=== PATIENT | female | born 1935 | race Caucasian/White ===

== ENCOUNTER 2020-11-15 12:40 | Emergency (ER) | payer OTHER, MEDICAID ==
[~2020-11-15] VITALS: Ht 152.4 cm; Wt 82.0 kg
[2020-11-15] MEDS ORDERED: CARV6 PO (13:36)
[2020-11-15] MEDS ORDERED: AMLO2.5T29 PO (13:37)
[2020-11-15] MEDS ORDERED: INSREG SQ (13:37)
[2020-11-15 13:53] LABS: GLUCOSE,POINT OF CARE 198 MG/DL (70-110)
[2020-11-15 14:19] LABS: BASOPHILS % (AUTO) 0.7 % (0.0-2.0); HEMATOCRIT 41.2 % (36-46); HEMOGLOBIN 13.7 g/dL (12.0-16.0); LYMPHOCYTES # (AUTO) 3.3 K/uL (1.0-4.8); LYMPHOCYTES % (AUTO) 36.6 % (22.0-44.0); MEAN CORPUSCULAR HGB CONC 33.2 G/dL (31.0-37.0); MEAN CORPUSCULAR VOLUME 93 fL (80-100); MONOCYTES # (AUTO) 0.7 K/uL (0.1-1.0); MONOCYTES % (AUTO) 8.2 % (2.0-9.0); NEUTROPHILS # (AUTO) 4.4 K/uL (1.8-7.7); NEUTROPHILS % (AUTO) 49.5 % (40.0-70.0); PLATELET COUNT (AUTO) 154 K/uL (150-450); RED BLOOD CELL COUNT(AUTO) 4.41 MIL/uL (4.00-5.20); RED CELL DISTRIBUTION WIDTH 14.9 % (11.5-14.5)
[2020-11-15 14:27] LABS: CALCIUM, TOTAL 8.7 mg/dL (8.8-10.5); CREATININE 0.98 mg/dL (0.60-1.30); POTASSIUM 4.2 mmol/L (3.5-5.1)
[2020-11-15 14:34] LABS: ALBUMIN 3.3 g/dL (3.4-5.0); BILIRUBIN,TOTAL 0.6 mg/dL (0.1-1.0); TOTAL PROTEIN, SERUM 7.2 g/dL (6.4-8.2)
[2020-11-15 15:02] LABS: COVID AG,FIA SOURCE NASAL SWAB
[2020-11-15 16:23] LABS: RAPID GROUP A STREP NEGATIVE (NEGATIVE)
[2020-11-15 16:48] LABS: INFLUENZA TYPE A NEGATIVE FOR TYPE A (NEGATIVE); INFLUENZA TYPE B NEGATIVE FOR TYPE B (NEGATIVE)
[2020-11-15 16:59] VITALS: BP 143/79
== END 2020-11-15 17:21 | disposition home or self-care (01) ==
LOC: EMS 12:40
DX: J06.9 Acute upper respiratory infection, unspecified (principal); J02.9 Acute pharyngitis, unspecified; Z20.822 Contact with and (suspected) exposure to COVID-19
CPT/HCPCS: 71045; 80053; 82962; 85025; 87430; 87804; 99285; 36415-L1; 36415-TC

== ENCOUNTER 2021-07-18 15:18 | Emergency (ER) | payer OTHER, MEDICAID ==
[~2021-07-18] VITALS: Ht 162.6 cm; Wt 90.9 kg
[~2021-07-18 15:18] MED LIST: AMLO-258 PO; AMLO2.5T29 PO; ASPI-1444 PO; ATOR20TA86 PO; CARV6 PO; CHOL200059 PO; CICL90CR11 TP; EMPA10TA PO; GLUC-111 PO; INSREG SQ; LEVO88TA4 PO; LOSA-382 PO; METF-1211 PO; PANT-31 PO; VIT1CAPS5 PO
[2021-07-18 18:41] VITALS: BP 133/109
== END 2021-07-18 19:36 | disposition home or self-care (01) ==
LOC: EMS 15:20
DX: S09.90XA Unspecified injury of head, initial encounter (principal); E11.9 Type 2 diabetes mellitus without complications; I10 Essential (primary) hypertension; W19.XXXA Unspecified fall, initial encounter; Y93.89 Activity, other specified; Y92.89 Other specified places as the place of occurrence of the external cause; Y99.8 Other external cause status
CPT/HCPCS: 70450; 99284

== ENCOUNTER 2022-03-29 16:59 | Inpatient (IN) | payer OTHER, MEDICAID ==
[~2022-03-29] VITALS: Ht 160 cm; Wt 79.0 kg
[~2022-03-29 16:59] MED LIST changes: -EMPA10TA PO; +EMPA10TA3 PO
[2022-03-29 17:48] LABS: BASOPHILS % (AUTO) 0.7 % (0.0-2.0); EOSINOPHILS % (AUTO) 0.3 % (1.0-6.0); HEMATOCRIT 38.1 % (36-46); HEMOGLOBIN 12.5 g/dL (12.0-16.0); LYMPHOCYTES % (AUTO) 24.9 % (22.0-44.0); MEAN CORPUSCULAR HEMOGLOBIN 30.3 pg (26.0-34.0); MEAN CORPUSCULAR HGB CONC 32.9 G/dL (31.0-37.0); MEAN CORPUSCULAR VOLUME 92 fL (80-100); MONOCYTES # (AUTO) 0.9 K/uL (0.1-1.0); MONOCYTES % (AUTO) 10.9 % (2.0-9.0); NEUTROPHILS # (AUTO) 5.1 K/uL (1.8-7.7); NEUTROPHILS % (AUTO) 63.2 % (40.0-70.0); PLATELET COUNT (AUTO) 120 K/uL (150-450); RED BLOOD CELL COUNT(AUTO) 4.13 MIL/uL (4.00-5.20); RED CELL DISTRIBUTION WIDTH 14.2 % (11.5-14.5)
[2022-03-29 18:01] LABS: CALCIUM, TOTAL 8.9 mg/dL (8.8-10.5); CREATININE 1.02 mg/dL (0.60-1.30); POTASSIUM 4.3 mmol/L (3.5-5.1)
[2022-03-29 18:09] LABS: LACTIC ACID 1.6 mmol/L (0.4-2.0)
[2022-03-29 18:16] LABS: ALBUMIN 3.4 g/dL (3.4-5.0); TOTAL PROTEIN, SERUM 7.2 g/dL (6.4-8.2)
[2022-03-29 18:35] LABS: COVID AG,FIA SOURCE NASOPHARYNGEAL
[2022-03-29 19:08] LABS: INFLUENZA TYPE A NEGATIVE FOR TYPE A (NEGATIVE); INFLUENZA TYPE B NEGATIVE FOR TYPE B (NEGATIVE)
[2022-03-29] MEDS ORDERED: ZOLPIDEM TARTRATE 5 MG TABLET PO PRN (20:15)
[2022-03-29] MEDS ORDERED: ONDANSETRON HCL 4 MG/2 ML VIAL IVP PRN (20:15)
[2022-03-29] MEDS ORDERED: ACETAMINOPHEN 325 MG TABLET PO PRN (20:15)
[2022-03-29] MEDS ORDERED: HYDROCODONE/ACETAMINOPHEN 5-325 MG TABLET PO PRN (20:15)
[2022-03-29] MEDS ORDERED: BISACODYL 10 MG RECTAL RECTAL SUPPOSITORY PR PRN (20:15)
[2022-03-29] MEDS ORDERED: MORPHINE SULFATE 2 MG/ML SYRINGE IVP PRN (20:15)
[2022-03-29] MEDS ORDERED: *CLINICAL-LEVOFLOXACIN IVPB DOSING CLINICAL ONE (20:15)
[2022-03-29] MEDS ORDERED: MAGNESIUM HYDROXIDE SUSPENSION 30 ML UDCUP PO PRN (20:15)
[2022-03-29] MEDS ORDERED: DEXAMETHASONE 4 MG TABLET PO ONE (20:30)
[2022-03-29] MEDS ORDERED: REMDESIVIR 200 MG in SODIUM CHLORIDE 0.9% 250 ML IV ONE (20:30)
[2022-03-29] MEDS: DOCUSATE SODIUM 100 MG CAPSULE PO SCH (20:43)
[2022-03-29] MEDS: CARVEDILOL 6.25 MG TABLET PO SCH (20:43)
[2022-03-29] MEDS ORDERED: LEVOFLOXACIN 750 MG/D5% WATER 150 ML IV SCH (21:00)
[2022-03-29] MEDS: HEPARIN SODIUM,PORCINE 5,000 UNITS/ML VIAL SQ SCH (23:28)
[2022-03-30 03:29] VITALS: BP 133/52
[2022-03-30 06:17] VITALS: BP 135/58
[2022-03-30] MEDS: LEVOTHYROXINE SODIUM 88 MCG TABLET PO SCH (06:53)
[2022-03-30 07:49] LABS: BASOPHILS % (AUTO) 0.2 % (0.0-2.0); EOSINOPHILS % (AUTO) 0.1 % (1.0-6.0); HEMATOCRIT 37.5 % (36-46); HEMOGLOBIN 12.4 g/dL (12.0-16.0); LYMPHOCYTES # (AUTO) 1.2 K/uL (1.0-4.8); LYMPHOCYTES % (AUTO) 23.8 % (22.0-44.0); MEAN CORPUSCULAR HEMOGLOBIN 30.9 pg (26.0-34.0); MEAN CORPUSCULAR HGB CONC 33.2 G/dL (31.0-37.0); MEAN CORPUSCULAR VOLUME 93 fL (80-100); MONOCYTES # (AUTO) 0.1 K/uL (0.1-1.0); MONOCYTES % (AUTO) 2.4 % (2.0-9.0); NEUTROPHILS # (AUTO) 3.6 K/uL (1.8-7.7); NEUTROPHILS % (AUTO) 73.5 % (40.0-70.0); PLATELET COUNT (AUTO) 105 K/uL (150-450); RED BLOOD CELL COUNT(AUTO) 4.03 MIL/uL (4.00-5.20); RED CELL DISTRIBUTION WIDTH 14.2 % (11.5-14.5)
[2022-03-30 08:00] VITALS: BP 126/65
[2022-03-30 08:04] LABS: CALCIUM, TOTAL 8.6 mg/dL (8.8-10.5); CREATININE 0.95 mg/dL (0.60-1.30); POTASSIUM 4.1 mmol/L (3.5-5.1)
[2022-03-30] MEDS: AmLODIPine BESYLATE 10 MG TABLET PO SCH (08:27)
[2022-03-30] MEDS: ASPIRIN 81 MG DR TABLET PO SCH (08:27)
[2022-03-30] MEDS: PANTOPRAZOLE SODIUM 40 MG DR TABLET PO SCH (08:27)
[2022-03-30] MEDS: ATORVASTATIN CALCIUM 20 MG TABLET PO SCH (08:27)
[2022-03-30] MEDS: HEPARIN SODIUM,PORCINE 5,000 UNITS/ML VIAL SQ SCH ×3 (08:27→23:57)
[2022-03-30] MEDS: DOCUSATE SODIUM 100 MG CAPSULE PO SCH ×2 (08:27→20:41)
[2022-03-30] MEDS: CARVEDILOL 6.25 MG TABLET PO SCH ×2 (08:27→20:41)
[2022-03-30] MEDS: LOSARTAN POTASSIUM 50 MG TABLET PO SCH (08:28)
[2022-03-30] MEDS: DEXAMETHASONE 4 MG TABLET PO SCH (10:38)
[2022-03-30 12:15] LABS: APPEARANCE,URINE CLEAR (CLEAR); BILIRUBIN,URINE NEGATIVE (NEGATIVE); GLUCOSE, URINE (UA) >=1000 mg/dL (NEGATIVE); LEUKOCYTE ESTERASE ,URINE NEGATIVE (NEGATIVE); NITRATE,URINE NEGATIVE (NEGATIVE); OCCULT BLOOD,URINE NEGATIVE (NEGATIVE); PH,URINE 5.5 (5.0-8.0); PROTEIN,URINE TRACE mg/dL (NEGATIVE); SPECIFIC GRAVITIY, URINE 1.024 (1.003-1.030); UROBILINOGEN,URINE <=1.0 mg/dL (<=1.0)
[2022-03-30 12:50] LABS: BACTERIA,URINE None Seen /HPF (None Seen); RBC,URINE None Seen /HPF (0-2); SQUAMOUS EPITHELIAL CELL,UR Few /LPF (None Seen); WBC,URINE None Seen /HPF (0-5)
[2022-03-30] MEDS: CHOLECALCIFEROL (VIT D3) 2,000 UNITS [50 MCG] TABLET PO SCH (14:33)
[2022-03-30 16:00] VITALS: BP 142/68
[2022-03-30 19:30] VITALS: BP 131/63
[2022-03-31 05:30] VITALS: BP 129/59
[2022-03-31] MEDS: LEVOTHYROXINE SODIUM 88 MCG TABLET PO SCH (06:49)
[2022-03-31 07:09] LABS: BASOPHILS % (AUTO) 0.1 % (0.0-2.0); EOSINOPHILS % (AUTO) 0 % (1.0-6.0); HEMATOCRIT 39.2 % (36-46); LYMPHOCYTES # (AUTO) 1.7 K/uL (1.0-4.8); MEAN CORPUSCULAR HEMOGLOBIN 30.8 pg (26.0-34.0); MEAN CORPUSCULAR HGB CONC 33.2 G/dL (31.0-37.0); MEAN CORPUSCULAR VOLUME 93 fL (80-100); MONOCYTES # (AUTO) 0.7 K/uL (0.1-1.0); MONOCYTES % (AUTO) 6.6 % (2.0-9.0); NEUTROPHILS # (AUTO) 7.8 K/uL (1.8-7.7); NEUTROPHILS % (AUTO) 76.3 % (40.0-70.0); PLATELET COUNT (AUTO) 130 K/uL (150-450); RED BLOOD CELL COUNT(AUTO) 4.21 MIL/uL (4.00-5.20); RED CELL DISTRIBUTION WIDTH 14.4 % (11.5-14.5)
[2022-03-31 07:13] LABS: CALCIUM, TOTAL 8.3 mg/dL (8.8-10.5); CREATININE 1.37 mg/dL (0.60-1.30); POTASSIUM 3.8 mmol/L (3.5-5.1)
[2022-03-31 08:00] VITALS: BP 137/57
[2022-03-31] MEDS: HEPARIN SODIUM,PORCINE 5,000 UNITS/ML VIAL SQ SCH ×2 (08:00→08:18)
[2022-03-31] MEDS: ATORVASTATIN CALCIUM 20 MG TABLET PO SCH (08:17)
[2022-03-31] MEDS: LOSARTAN POTASSIUM 50 MG TABLET PO SCH (08:17)
[2022-03-31] MEDS: CARVEDILOL 6.25 MG TABLET PO SCH (08:17)
[2022-03-31] MEDS: DOCUSATE SODIUM 100 MG CAPSULE PO SCH (08:17)
[2022-03-31] MEDS: AmLODIPine BESYLATE 10 MG TABLET PO SCH (08:18)
[2022-03-31] MEDS: ASPIRIN 81 MG DR TABLET PO SCH (08:18)
[2022-03-31] MEDS: PANTOPRAZOLE SODIUM 40 MG DR TABLET PO SCH (08:18)
[2022-03-31] MEDS: DEXAMETHASONE 4 MG TABLET PO SCH (08:18)
[2022-03-31] MEDS: CHOLECALCIFEROL (VIT D3) 2,000 UNITS [50 MCG] TABLET PO SCH (08:19)
[2022-03-31] MEDS ORDERED: LEVO750T68 PO (11:30)
[2022-03-31] MEDS ORDERED: DEXA4 PO (11:30)
== END 2022-03-31 15:36 | disposition home or self-care (01) | DRG 177 ==
LOC: EMS 17:02 → AHU 23:46 → 6N 03-30 01:51
PROVIDERS: ADMIT Internal Medicine; ATTEND Internal Medicine
PROC: XW033E5 Introduction of Remdesivir Anti-infective into Peripheral Vein, Percutaneous Approach, New Technology Group 5 (ICD-10-PCS; principal; 2022-03-29)
DX: U07.1 COVID-19 (principal); I50.33 Acute on chronic diastolic (congestive) heart failure; J12.82 Pneumonia due to coronavirus disease 2019; I13.0 Hypertensive heart and chronic kidney disease with heart failure and stage 1 through stage 4 chronic kidney disease, or unspecified chronic kidney disease; E03.9 Hypothyroidism, unspecified; E11.22 Type 2 diabetes mellitus with diabetic chronic kidney disease; E78.5 Hyperlipidemia, unspecified; R79.89 Other specified abnormal findings of blood chemistry; N18.9 Chronic kidney disease, unspecified; K21.9 Gastro-esophageal reflux disease without esophagitis; Z79.899 Other long term (current) drug therapy; Z79.82 Long term (current) use of aspirin
CPT/HCPCS: 71045; 80048; 80053; 81001; 83605; 83690; 83880; 84484; 85025; 87040; 87804; 93005; 93306; 97162; 99291; G0378; J1644; J1956; J7050; J8540; Q9967; 36415-L1; 36415-TC

== ENCOUNTER 2023-12-31 13:53 | Emergency (ER) | payer OTHER, MEDICAID ==
[~2023-12-31] VITALS: Ht 167.6 cm; Wt 68.2 kg
[~2023-12-31 13:53] MED LIST changes: -AMLO2.5T29 PO; +ATOR20TA PO; -ATOR20TA86 PO; +DEXA4 PO; +LEVO750T68 PO
[2023-12-31 14:16] VITALS: BP 111/64; PULSE 76; RESP 18; TEMP 99; O2SAT 97
[2023-12-31] MEDS ORDERED: FURO20TA4 PO (14:21)
[2023-12-31] MEDS ORDERED: METF-81 PO (14:21)
[2023-12-31] MEDS ORDERED: ATOR40TA71 PO (14:21)
[2023-12-31] MEDS ORDERED: AMLO5TAB66 PO (14:21)
[2023-12-31] MEDS ORDERED: SENN-302 PO (14:21)
[2023-12-31] MEDS ORDERED: [UNRECOGNIZED DRUG - CODE] PO (14:21)
[2023-12-31] MEDS ORDERED: LEVO112T7 PO (14:21)
[2023-12-31 14:42] LABS: BASOPHILS % (AUTO) 0.8 % (0.0-2.0); EOSINOPHILS % (AUTO) 1.6 % (1.0-6.0); HEMATOCRIT 39.3 % (36-46); HEMOGLOBIN 12.5 g/dL (12.0-16.0); LYMPHOCYTES # (AUTO) 4.8 K/uL (1.0-4.8); MEAN CORPUSCULAR HEMOGLOBIN 28.1 pg (26.0-34.0); MEAN CORPUSCULAR HGB CONC 31.9 G/dL (31.0-37.0); MEAN CORPUSCULAR VOLUME 88 fL (80-100); MONOCYTES # (AUTO) 0.8 K/uL (0.1-1.0); NEUTROPHILS # (AUTO) 6.1 K/uL (1.8-7.7); NEUTROPHILS % (AUTO) 50.6 % (40.0-70.0); PLATELET COUNT (AUTO) 170 K/uL (150-450); RED BLOOD CELL COUNT(AUTO) 4.46 MIL/uL (4.00-5.20); RED CELL DISTRIBUTION WIDTH 17.1 % (11.5-14.5)
[2023-12-31 14:55] LABS: CALCIUM, TOTAL 8.8 mg/dL (8.8-10.5); CREATININE 1.09 mg/dL (0.60-1.30); POTASSIUM 4.2 mmol/L (3.5-5.1)
[2023-12-31 15:09] LABS: ALBUMIN 3.4 g/dL (3.4-5.0); BILIRUBIN,DIRECT 0.2 mg/dL (0.00-0.20); BILIRUBIN,TOTAL 0.9 mg/dL (0.1-1.0)
[2023-12-31 15:13] LABS: TROPONIN I-HIGH SENSITIVITY 85 ng/L (<51)
[2023-12-31] MEDS: ONDANSETRON HCL 4 MG/2 ML VIAL IVP ONE (15:49)
[2023-12-31] MEDS: SODIUM CHLORIDE 0.9% 1,000 ML IV ONE (15:49)
[2023-12-31] MEDS ORDERED: SODIUM CHLORIDE 0.9% 100 ML ONE (16:16)
[2023-12-31] MEDS ORDERED: IOHEXOL 350 MG/ML 100 ML VIAL ONE (16:16)
[2023-12-31] MEDS ORDERED: 0.9% SODIUM CHLORIDE 10 ML SYRINGE IVP ONE (16:16)
[2023-12-31 19:56] LABS: TROPONIN I-HIGH SENSITIVITY 90 ng/L (<51)
[2023-12-31] MEDS ORDERED: ONDA-104 PO (20:27)
== END 2023-12-31 20:38 | disposition home or self-care (01) ==
LOC: EMS 13:53
DX: K41.90 Unilateral femoral hernia, without obstruction or gangrene, not specified as recurrent (principal); K52.9 Noninfective gastroenteritis and colitis, unspecified; R10.13 Epigastric pain; R11.2 Nausea with vomiting, unspecified; I12.9 Hypertensive chronic kidney disease with stage 1 through stage 4 chronic kidney disease, or unspecified chronic kidney disease; E11.22 Type 2 diabetes mellitus with diabetic chronic kidney disease; N18.9 Chronic kidney disease, unspecified; E78.00 Pure hypercholesterolemia, unspecified; E03.9 Hypothyroidism, unspecified; Z79.82 Long term (current) use of aspirin; Z79.84 Long term (current) use of oral hypoglycemic drugs; Z79.899 Other long term (current) drug therapy
CPT/HCPCS: 99285; 74177; 96374; 96361; 80048; 80076; 83690; 84484; 85025; 36415; 93005; Q9967; J2405; J7030; J7050